=== PATIENT | female | born 1995 | race Caucasian/White ===

== ENCOUNTER 2024-03-03 14:15 | Observation (INO) | payer BC ==
[~2024-03-03] VITALS: Ht 154.9 cm; Wt 63.5 kg
[2024-03-03 14:32] VITALS: BP 104/65; PULSE 114; TEMP 98
== END 2024-03-03 15:20 | disposition home or self-care (01) ==
LOC: MLD 14:15
PROVIDERS: ADMIT Obstetrics & Gynecology; ATTEND Obstetrics & Gynecology
DX: O42.913 Preterm premature rupture of membranes, unspecified as to length of time between rupture and onset of labor, third trimester (principal); Z3A.35 35 weeks gestation of pregnancy
CPT/HCPCS: 59025; 81000; G0378